=== PATIENT | female | born 2000 | race Caucasian/White ===

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

== ENCOUNTER → 2020-09-13 | Outpatient (CLI) | payer OTHER ==
[~2020-09-13] MED LIST changes: +GADOBUTROL 10 MMOL/10 ML (GADAVIST) VIAL IV ONE; -ONDA8TAB12; +ONDA8TAB15
--- NOTE | 2020-09-13 10:38 | Diagnostic Imaging Report ---
PROCEDURE: MR imaging of the brain with and without contrast. TECHNIQUE: Multiplanar, multisequence MR imaging of the brain was performed with and without contrast. INDICATION: Leg numbness. COMPARISON: No prior studies are available for comparison. FINDINGS: The ventricles and sulci are within normal limits. No sulcal effacement or midline shift is identified. No acute intra-axial or extra-axial hemorrhage is detected. The corpus callosum is unremarkable. The sella and parasellar structures are unremarkable. No abnormal enhancement following contrast administration is seen. There is no diffusion restriction. The normal expected flow-voids within the carotid siphons are seen. IMPRESSION: Unremarkable pre and post contrast MRI of the brain. Dictated by: Dictated on workstation # [id number]
== END ==
LOC: RAD 09:08
PROVIDERS: ATTEND Nurse Practitioner Family
DX: M79.609 Pain in unspecified limb (principal); R20.2 Paresthesia of skin
CPT/HCPCS: 70553

== ENCOUNTER → 2020-12-30 | Outpatient (CLI) | payer OTHER ==
[~2020-12-30] MED LIST changes: +ESCI-2; -ESCI10TA55; -GADOBUTROL 10 MMOL/10 ML (GADAVIST) VIAL IV ONE
--- NOTE | 2020-12-30 13:02 | Diagnostic Imaging Report ---
PROCEDURE: Pelvic comp/transvaginal sonogram. TECHNIQUE: Complete transabdominal and transvaginal pelvic ultrasound was performed. In addition, limited pelvic Doppler was performed. INDICATION: Vaginal bleeding and pelvic pain. FINDINGS: The uterus is anteverted measuring 6.6 x 2.6 x 3.2 cm. The endometrium is 6 mm in thickness. No myometrial mass is detected. The right ovary measures 4.3 x 2.7 x 2.8 cm and the left ovary measures 3.7 x 2.4 x 2.4 cm. Both ovaries contain multiple follicles. The right ovary does contain a 2 cm follicle. There is blood flow to both ovaries. No adnexal mass or free fluid is detected. IMPRESSION: Unremarkable transabdominal and transvaginal pelvic ultrasound apart from a 2 cm follicle in the right ovary. Dictated by: Dictated on workstation # [id number]
== END ==
LOC: RAD 09:49
PROVIDERS: ATTEND Nurse Practitioner Family
DX: N93.9 Abnormal uterine and vaginal bleeding, unspecified (principal); N83.01 Follicular cyst of right ovary
CPT/HCPCS: 76830; 76856

== ENCOUNTER → 2021-06-24 | Outpatient (CLI) | payer OTHER ==
--- NOTE | 2021-06-24 13:26 | Diagnostic Imaging Report ---
INDICATION: Back pain. TIME OF EXAM: 12:53 p.m. FINDINGS: Three views of the lumbar spine were obtained. There is very slight left convexity lumbar scoliotic curvature. There is mild straightening of the normal lumbar lordotic curvature. Vertebral body heights are well maintained. Disc spaces are preserved. No fracture or subluxation is identified. There are surgical clips in the gallbladder fossa. IMPRESSION: Mild left convexity lumbar scoliotic curvature. No acute bony abnormality is detected. Dictated by: Dictated on workstation # [id number]
--- NOTE | 2021-06-24 14:13 | Diagnostic Imaging Report ---
INDICATION: Back injury. TIME OF EXAM: 12:52 p.m. FINDINGS: There is right convexity scoliotic curvature at the level of the ijz-nu-zusfk thoracic spine. There is straightening of the normal thoracic kyphotic curvature. Vertebral body heights are maintained. No vertebral body anomaly is seen. The pedicles are intact. Paraspinous line is intact. IMPRESSION: Thoracic scoliosis. No acute bony abnormality is detected. Dictated by: Dictated on workstation # [id number]
== END ==
LOC: RAD 12:20
PROVIDERS: ATTEND Nurse Practitioner Family
DX: S23.8XXA Sprain of other specified parts of thorax, initial encounter (principal); S39.012A Strain of muscle, fascia and tendon of lower back, initial encounter; G90.8 Other disorders of autonomic nervous system; M41.9 Scoliosis, unspecified; X58.XXXA Exposure to other specified factors, initial encounter
CPT/HCPCS: 72070; 72100

== ENCOUNTER 2021-09-02 21:37 | Emergency (ER) | payer OTHER ==
[~2021-09-02] VITALS: Ht 170 cm; Wt 62.0 kg
[2021-09-02] MEDS ORDERED: METO-333 PO (21:48)
[2021-09-02] MEDS ORDERED: MEDR10TA9 (21:48)
[2021-09-02] MEDS ORDERED: CYCL10TA9 (21:48)
--- NOTE | 2021-09-02 21:55 | ED Cardiac General ---
History of Present Illness General Chief Complaint: Chest Pain Stated Complaint: CP/BP 156/120 Nursing Triage Note: INTERMITTANT LEFT UPPER CHEST "ACHY" PAIN X2 HRS Source: patient Exam Limitations: no limitations (LEAH SAHA APRN) History of Present Illness Date Seen by Provider: Sep 02, 2021 Time Seen by Provider: 21:53 Initial Comments To ER by private vehicle from home. She was at work laying down when she noticed that she felt a little shaky and lightheaded with tightness in her chest. She is on metoprolol for her POTS. Her blood pressure was 150/120 when she took it. She called her mother who is a nurse who referred her to the emergency room. She overall feels a little better but still a little shaky. Timing/Duration: 1-3 hours Severity: moderate Location: central Activities at Onset: none NTG SL CYBER SECURITY SYSTEMS ENGINEER: No ASA po CYBER SECURITY SYSTEMS ENGINEER: No Associated Systoms: Denies Symptoms (LEAH SAHA APRN) Allergies and Home Medications Allergies Coded Allergies: No Known Drug Allergies (Unverified , 07/18/12) Patient Home Medication List Home Medication List Reviewed: Yes (LEAH SAHA APRN) Cyclobenzaprine HCl (Cyclobenzaprine HCl) 10 Mg Tablet, (Reported) Entered as Reported by: OMAR GLEZ on 09/02/212147 Last Action: New Order Medroxyprogesterone Acetate (Medroxyprogesterone Acetate) 10 Mg Tablet, (Reported) Entered as Reported by: OMAR GLEZ on 09/02/212147 Last Action: New Order Metoprolol Tartrate (Metoprolol Tartrate) 25 Mg Tablet, Unknown Dose PO BID, (Reported) Entered as Reported by: OMAR GLEZ on 09/02/212147 Last Action: New Order Nitrofurantoin Monohyd/M-Cryst (Macrobid 100 mg Capsule) 100 Mg Capsule, 1 TAB PO BID Prescribed by: LEAH SAHA on 09/02/21 2252 Discontinued Medications Duloxetine HCl (Duloxetine HCl) 60 Mg Capsule., (Reported) Discontinued Reason: No Longer Taking Entered as Reported by: GAVINO MYLES on 06/21/191615 Last Action: Discontinued Rizatriptan Benzoate (Rizatriptan) 10 Mg Tablet, (Reported) Discontinued Reason: No Longer Taking Entered as Reported by: GAVINO MYLES on 9/7/19 1616 Last Action: Discontinued Review of Systems Review of Systems Constitutional: see HPI EENTM: No Symptoms Reported Respiratory: No Symptoms Reported Cardiovascular: See HPI, Lightheadedness, Palpitations Gastrointestinal: No Symptoms Reported Genitourinary: No Symptoms Reported Musculoskeletal: no symptoms reported Skin: no symptoms reported Psychiatric/Neurological: No Symptoms Reported Endocrine: No Symptoms Reported Hematologic/Lymphatic: No Symptoms Reported (LEAH SAHA APRN) Past Obtewtf-Cdxayf-Qbrjvw Hx Patient Social History Tobacco Use?: Yes Substance use?: No Alcohol Use?: No Pt feels they are or have been: No (LEAH SAHA APRN) Immunizations Up To Date PED Vaccines UTD: Yes First/Initial COVID19 Vaccinat: 12/05 Second COVID19 Vaccination Mulugeta: 01/02 COVID19 Vaccine Cloth Calender: magnetUBrayan (LEAH SAHA APRN) Seasonal Allergies Seasonal Allergies: No (LEAH SAHA APRN) Past Medical History Surgery/Hospitalization HX: POTS Surgeries: Yes Gallbladder Respiratory: No Cardiac: Yes (Postural Tachycardia Syndrome) Neurological: No Headaches /Migraines Last Menstrual Period: Aug 19, 2021 Reproductive Disorders: No Genitourinary: No Gastrointestinal: Yes Gastroesophageal Reflux Musculoskeletal: No Scoliosis Endocrine: No HEENT: No Cancer: No Psychosocial: No Anxiety, Depression Integumentary: No Blood Disorders: No (LEAH SAHA APRN) Physical Exam Vital Signs Vital Signs - First Documented 09/02/21 21:41 Temp 36.4 Pulse 103 Resp 16 B/P (MAP) 126/80 (95) Pulse Ox 97 O2 Delivery Room Air (TOOTIE,CELESTE K DO) Vital Signs Capillary Refill : Less Than 3 Seconds (LEAH SAHA APRN) Height, Weight, BMI Height: 5'7.00" Weight: 135lbs. 0.0oz. 61.671426zt; 21.00 BMI Method:Stated General Appearance: No Apparent Distress, WD/WN, Other (Alert and oriented GCS 15 very pleasant no distress talkative. EKG shows sinus rhythm rate of [address] segment changes no ectopy normal intervals.) Neck: Full Range of Motion, Normal Inspection Respiratory: Chest Non Tender, No Accessory Muscle Use, No Respiratory Distress Cardiovascular: Regular Rate, Rhythm, Normal Peripheral Pulses Gastrointestinal: Normal Bowel Sounds, Non Tender, Soft Extremity: Normal Capillary Refill, Normal Inspection Neurologic/Psychiatric: Alert, Oriented x3 Skin: Normal Color, Warm/Dry (LEAH SAHA APRN) Progress/Results/Core Measures Results/Orders Lab Results Laboratory Tests Test 09/02/21 21:53 09/02/21 21:58 Range/Units White Blood Count 10.1 4.3-11.0 10^3/uL Red Blood Count 4.80 3.80-5.11 10^6/uL Hemoglobin 14.7 11.5-16.0 g/dL Hematocrit 43 35-52 % Mean Corpuscular Volume 90 80-99 fL Mean Corpuscular Hemoglobin 31 25-34 pg Mean Corpuscular Hemoglobin Concent 34 32-36 g/dL Red Cell Distribution Width 11.6 10.0-14.5 % Platelet Count 222 130-400 10^3/uL Mean Platelet Volume 10.3 9.0-12.2 fL Immature Granulocyte % (Auto) 0 % Neutrophils (%) (Auto) 62 42-75 % Lymphocytes (%) (Auto) 29 12-44 % Monocytes (%) (Auto) 7 0-12 % Eosinophils (%) (Auto) 2 0-10 % Basophils (%) (Auto) 0 0-10 % Neutrophils # (Auto) 6.2 1.8-7.8 10^3/uL Lymphocytes # (Auto) 2.9 1.0-4.0 10^3/uL Monocytes # (Auto) 0.7 0.0-1.0 10^3/uL Eosinophils # (Auto) 0.2 0.0-0.3 10^3/uL Basophils # (Auto) 0.0 0.0-0.1 10^3/uL Immature Granulocyte # (Auto) 0.0 0.0-0.1 10^3/uL D-Dimer < 0.27 0.00-0.49 UG/ML Sodium Level 139 135-145 MMOL/L Potassium Level 3.6 3.6-5.0 MMOL/L Chloride Level 107 98-107 MMOL/L Carbon Dioxide Level 21 21-32 MMOL/L Anion Gap 11 5-14 MMOL/L Blood Urea Nitrogen 9 7-18 MG/DL Creatinine 0.75 0.60-1.30 MG/DL Estimat Glomerular Filtration Rate 98 BUN/Creatinine Ratio 12 Glucose Level 94 70-105 MG/DL Calcium Level 9.3 8.5-10.1 MG/DL Corrected Calcium 9.1 8.5-10.1 MG/DL Total Bilirubin 0.4 0.1-1.0 MG/DL Aspartate Amino Transf (AST/SGOT) 22 5-34 U/L Alanine Aminotransferase (ALT/SGPT) 12 0-55 U/L Alkaline Phosphatase 75 40-136 U/L C-Reactive Protein High Sensitivity 0.03 0.00-0.50 MG/DL Total Protein 7.0 6.4-8.2 GM/DL Albumin 4.2 3.2-4.5 GM/DL Serum Test, Qualitative NEGATIVE NEGATIVE Urine Color YELLOW Urine Clarity CLEAR Urine pH 5.5 5-9 Urine Specific Bronson 1.025 H 1.016-1.022 Urine Protein NEGATIVE NEGATIVE Urine Glucose (UA) NEGATIVE NEGATIVE Urine Ketones NEGATIVE NEGATIVE Urine Nitrite NEGATIVE NEGATIVE Urine Bilirubin NEGATIVE NEGATIVE Urine Urobilinogen 0.2 < = 1.0 MG/DL Urine Leukocyte Esterase 1+ H NEGATIVE Urine RBC (Auto) 1+ H NEGATIVE Urine RBC 0-2 /HPF Urine WBC 5-10 H /HPF Urine Squamous Epithelial Cells 5-10 /HPF Urine Crystals PRESENT H /LPF Urine Amorphous Sediment FEW WANDA URATES H /LPF Urine Bacteria FEW H /HPF Urine Casts NONE /LPF Urine Mucus NEGATIVE /LPF Urine Culture Indicated YES (CELESTE SOMMERS DO) Micro Results Microbiology 09/02/21 Urine Culture - Final, Complete Mixed Bacterial Adriana With Gardnerella vaginalis Strep agalactiae Group B (ELAYNE SOMMERSA K DO) Vital Signs/I&O 09/02/21 09/02/21 21:41 23:11 Temp 36.4 36.0 Pulse 103 74 Resp 16 16 B/P (MAP) 126/80 (95) 123/77 Pulse Ox 97 100 O2 Delivery Room Air Room Air (ELAYNE SOMMERSA Madhav DO) Blood Pressure Mean: 95 Departure Impression Primary Impression: Lightheadedness Disposition: 01 HOME, SELF-CARE Condition: Stable Departure-Patient Inst. Decision time for Depature: 22:49 (LEAH SAHA APRN) Referrals: [facility] (PCP/Family) Primary Care Physician Patient Instructions: NO INSTRUCTIONS GIVEN Add. Discharge Instructions: 1. return to er for any concerns All discharge instructions reviewed with patient and/or family. Voiced understanding. Scripts Nitrofurantoin Monohyd/M-Cryst (Macrobid 100 mg Capsule) 100 Mg Capsule 1 TAB PO BID, #10 CAP Prov: LEAH SAHA BUSINESS SERVICES TECH 09/02/21 Work/School Note: Work Release Form Date Seen in the Emergency Department: Sep 02, 2021 Return to Work: Sep 04, 2021 ATTENDING PHYSICIAN NOTE: I WAS PHYSICALLY PRESENT ER PHYSICIAN WHEN THIS PATIENT WAS IN ER, BUT I WAS NOT INVOLVED IN ANY DECISION MAKING OR ANY CARE OF THIS PATIENT. (CELESTE SOMMERS DO) LEAH SAHA APRN Sep 02, 2021 21:55 CELESTE SOMMERS DO Sep 05, 2021 19:43
[2021-09-02] MEDS ORDERED: LACTATED RINGERS 1,000 ML IV SCH (22:00)
[2021-09-02 22:06] LABS: BASOPHILS % (AUTO) 0 % (0-10); EOSINOPHILS # (AUTO) 0.2 10^3/uL (0.0-0.3); EOSINOPHILS % (AUTO) 2 % (0-10); HEMATOCRIT 43 % (35-52); HEMOGLOBIN 14.7 g/dL (11.5-16.0); LYMPHOCYTES # (AUTO) 2.9 10^3/uL (1.0-4.0); LYMPHOCYTES % (AUTO) 29 % (12-44); MEAN CORPUSCULAR HEMOGLOBIN 31 pg (25-34); MEAN CORPUSCULAR HGB CONC 34 g/dL (32-36); MEAN CORPUSCULAR VOLUME 90 fL (80-99); MEAN PLATELET VOLUME 10.3 fL (9.0-12.2); MONOCYTES # (AUTO) 0.7 10^3/uL (0.0-1.0); MONOCYTES % (AUTO) 7 % (0-12); NEUTROPHILS # (AUTO) 6.2 10^3/uL (1.8-7.8); NEUTROPHILS % (AUTO) 62 % (42-75); PLATELET COUNT 222 10^3/uL (130-400); WHITE BLOOD COUNT 10.1 10^3/uL (4.3-11.0)
[2021-09-02 22:08] LABS: BILIRUBIN,URINE NEGATIVE (NEGATIVE); CLARITY,URINE CLEAR; COLOR,URINE YELLOW; GLUCOSE, URINE (UA) NEGATIVE (NEGATIVE); KETONES,URINE NEGATIVE (NEGATIVE); LEUKOCYTE ESTERASE ,URINE 1+ (NEGATIVE); NITRITE,URINE NEGATIVE (NEGATIVE); PH,URINE 5.5 (5-9); PROTEIN,URINE NEGATIVE (NEGATIVE)
[2021-09-02 22:26] LABS: ALBUMIN 4.2 GM/DL (3.2-4.5); POTASSIUM 3.6 MMOL/L (3.6-5.0)
[2021-09-02 22:27] LABS: CALCIUM 9.3 MG/DL (8.5-10.1)
[2021-09-02 22:30] LABS: BILIRUBIN,TOTAL 0.4 MG/DL (0.1-1.0)
[2021-09-02 22:32] LABS: CREATININE SERUM 0.75 MG/DL (0.60-1.30)
[2021-09-02 22:49] LABS: RBC,URINE 0-2 /HPF
[2021-09-02 22:50] LABS: AMORPHOUS SEDIMENT,UR FEW AMOR URATES /LPF; BACTERIA,URINE FEW /HPF
[2021-09-02] MEDS ORDERED: NITR-65 PO (22:52)
[2021-09-02 23:11] VITALS: BP 123/77
== END 2021-09-02 23:14 | disposition home or self-care (01) ==
LOC: EDUNIT# 21:37 → ER 21:39
DX: R42 Dizziness and giddiness (principal); F41.9 Anxiety disorder, unspecified; F32.9 Major depressive disorder, single episode, unspecified; Z72.0 Tobacco use
CPT/HCPCS: 36415; 80053; 81000; 84703; 85025; 85379; 86141; 87077; 87088; 93005

== ENCOUNTER 2022-03-03 21:00 | Emergency (ER) | payer OTHER ==
[~2022-03-03] VITALS: Ht 172.7 cm; Wt 68.0 kg
[~2022-03-03 21:00] MED LIST changes: +CYCL10TA25; +MEDR10TA9; +METO-333 PO; +NITR-65 PO; +ONDA-106; -ONDA8TAB15
[2022-03-03] MEDS ORDERED: LACTATED RINGERS 1,000 ML IV ONE (21:15)
--- NOTE | 2022-03-03 21:19 | ED General ---
General Stated Complaint: CARDIAC HX, LOW BP 94/62, HIGH HR 147 Source of Information: Patient History of Present Illness Date Seen by Provider: March 03, 2022 Time Seen by Provider: 21:07 Initial Comments PT ARRIVES VIA POV FROM HOME PCP: KURTIS, DR. [employer] CONSULTANT: DR. MISHRA Allergies and Home Medications Allergies Coded Allergies: No Known Drug Allergies (Unverified , 07/18/12) Patient Home Medication List Cyclobenzaprine HCl (Cyclobenzaprine HCl) 10 Mg Tablet, (Reported) Entered as Reported by: OMAR GLEZ on 09/02/212147 Medroxyprogesterone Acetate (Medroxyprogesterone Acetate) 10 Mg Tablet, (Reported) Entered as Reported by: OMAR GLEZ on 09/02/212147 Metoprolol Tartrate (Metoprolol Tartrate) 25 Mg Tablet, Unknown Dose PO BID, (Reported) Entered as Reported by: OMAR GLEZ on 09/02/212147 Nitrofurantoin Monohyd/M-Cryst (Macrobid 100 mg Capsule) 100 Mg Capsule, 1 TAB PO BID Prescribed by: LEAH SAHA on 09/02/212251 Past Ffljpga-Mbxkvy-Lrlkyc Hx Immunizations Up To Date PED Vaccines UTD: Yes First/Initial COVID19 Vaccinat: 12/05 Second COVID19 Vaccination Mulugeta: 01/02 Seasonal Allergies Seasonal Allergies: No Past Medical History Surgery/Hospitalization HX: POTS Surgeries: Yes Gallbladder Respiratory: No Cardiac: Yes (Postural Tachycardia Syndrome) Neurological: No Headaches /Migraines Reproductive Disorders: No Genitourinary: No Gastrointestinal: Yes Gastroesophageal Reflux Musculoskeletal: No Scoliosis Endocrine: No HEENT: No Cancer: No Psychosocial: No Anxiety, Depression Integumentary: No Blood Disorders: No Physical Exam Vital Signs Vital Signs - First Documented 03/03/22 21:07 Temp 36.2 Pulse 100 Resp 18 B/P (MAP) 130/85 (100) Pulse Ox 99 Capillary Refill : Height, Weight, BMI Height: 5'7.00" Weight: 135lbs. 0.0oz. [id number]; 21.00 BMI Method:Stated Progress/Results/Core Measures Suspected Sepsis SIRS Temperature: Pulse: Respiratory Rate: Laboratory Tests 03/03/22 21:26: White Blood Count 10.7 Blood Pressure / Mean: Laboratory Tests 03/03/22 21:26: Creatinine 0.84, Platelet Count 225, Total Bilirubin 1.0 Results/Orders Lab Results Laboratory Tests Test 03/03/22 21:26 03/03/22 21:30 Range/Units White Blood Count 10.7 4.3-11.0 10^3/uL Red Blood Count 5.13 H 3.80-5.11 10^6/uL Hemoglobin 15.4 11.5-16.0 g/dL Hematocrit 45 35-52 % Mean Corpuscular Volume 88 80-99 fL Mean Corpuscular Hemoglobin 30 25-34 pg Mean Corpuscular Hemoglobin Concent 34 32-36 g/dL Red Cell Distribution Width 11.6 10.0-14.5 % Platelet Count 225 130-400 10^3/uL Mean Platelet Volume 10.3 9.0-12.2 fL Immature Granulocyte % (Auto) 0 % Neutrophils (%) (Auto) 77 H 42-75 % Lymphocytes (%) (Auto) 17 12-44 % Monocytes (%) (Auto) 5 0-12 % Eosinophils (%) (Auto) 1 0-10 % Basophils (%) (Auto) 0 0-10 % Neutrophils # (Auto) 8.3 H 1.8-7.8 10^3/uL Lymphocytes # (Auto) 1.8 1.0-4.0 10^3/uL Monocytes # (Auto) 0.5 0.0-1.0 10^3/uL Eosinophils # (Auto) 0.1 0.0-0.3 10^3/uL Basophils # (Auto) 0.0 0.0-0.1 10^3/uL Immature Granulocyte # (Auto) 0.0 0.0-0.1 10^3/uL Sodium Level 140 135-145 MMOL/L Potassium Level 3.8 3.6-5.0 MMOL/L Chloride Level 108 H 98-107 MMOL/L Carbon Dioxide Level 19 L 21-32 MMOL/L Anion Gap 13 5-14 MMOL/L Blood Urea Nitrogen 14 7-18 MG/DL Creatinine 0.84 0.60-1.30 MG/DL Estimat Glomerular Filtration Rate 101 BUN/Creatinine Ratio 17 Glucose Level 100 70-105 MG/DL Calcium Level 9.9 8.5-10.1 MG/DL Corrected Calcium 8.5-10.1 MG/DL Magnesium Level 2.3 1.6-2.4 MG/DL Total Bilirubin 1.0 0.1-1.0 MG/DL Aspartate Amino Transf (AST/SGOT) 26 5-34 U/L Alanine Aminotransferase (ALT/SGPT) 18 0-55 U/L Alkaline Phosphatase 58 40-136 U/L B-Type Natriuretic Peptide < 10.0 <100.0 PG/ML Total Protein 8.3 H 6.4-8.2 GM/DL Albumin 5.0 H 3.2-4.5 GM/DL Urine Color YELLOW Urine Clarity CLEAR Urine pH 5.5 5-9 Urine Specific Redby >=1.030 1.016-1.022 Urine Protein NEGATIVE NEGATIVE Urine Glucose (UA) NEGATIVE NEGATIVE Urine Ketones 1+ H NEGATIVE Urine Nitrite NEGATIVE NEGATIVE Urine Bilirubin NEGATIVE NEGATIVE Urine Urobilinogen 0.2 < = 1.0 MG/DL Urine Leukocyte Esterase NEGATIVE NEGATIVE Urine RBC (Auto) NEGATIVE NEGATIVE Urine RBC 0-2 /HPF Urine WBC 2-5 /HPF Urine Squamous Epithelial Cells 5-10 /HPF Urine Crystals NONE /LPF Urine Bacteria FEW H /HPF Urine Casts NONE /LPF Urine Mucus SMALL H /LPF Urine Yeast FEW H /HPF Urine Culture Indicated YES Urine Opiates Screen NEGATIVE NEGATIVE Urine Oxycodone Screen NEGATIVE NEGATIVE Urine Methadone Screen NEGATIVE NEGATIVE Urine Propoxyphene Screen NEGATIVE NEGATIVE Urine Barbiturates Screen NEGATIVE NEGATIVE Ur Tricyclic Antidepressants Screen NEGATIVE NEGATIVE Urine Phencyclidine Screen NEGATIVE NEGATIVE Urine Amphetamines Screen NEGATIVE NEGATIVE Urine Methamphetamines Screen NEGATIVE NEGATIVE Urine Benzodiazepines Screen NEGATIVE NEGATIVE Urine Cocaine Screen NEGATIVE NEGATIVE Urine Cannabinoids Screen NEGATIVE NEGATIVE My Orders Orders - CELESTE SOMMERS DO Ed Iv/Invasive Line Start (03/03/22 21:08) Urine Bedside (03/03/22 21:08) Ekg Tracing (03/03/22 21:08) Monitor-Rhythm Ecg Trace Only (03/03/22 21:08) Bnp Yobany (03/03/22 21:08) Cbc With Automated Diff (03/03/22 21:08) Comprehensive Metabolic Panel (03/03/22 21:08) Drug Screen Stat (Urine) (03/03/22 21:08) Magnesium (03/03/22 21:08) Thyroid Analyzer (03/03/22 21:08) Ua Culture If Indicated (03/03/22 21:08) Ed Iv/Invasive Line Start (03/03/22 21:08) Lactated Ringers (Lr 1000 Ml Iv Solution (03/03/22 21:15) Ketorolac Injection (Toradol Injection) (03/03/22 22:15) Urine Culture (03/03/22 21:30) Medications Given in ED Current Medications Medications Dose Ordered Sig/Floyd Route Start Time Stop Time Status Last Admin Dose Admin Lactated Ringer's 1,000 ml @ 0 mls/hr Q0M ONCE IV 03/03/22 21:15 03/03/22 21:16 DC 03/03/22 21:32 0 MLS/HR Vital Signs/I&O 03/03/22 21:07 Temp 36.2 Pulse 100 Resp 18 B/P (MAP) 130/85 (100) Pulse Ox 99 Capillary Refill : Progress Note : Progress Note PT IS TALKING AND TEXTING ON PHONE FROM ARRIVAL AND THROUGHOUT HISTORY AND EXAM, DESPITE BEING ASKED MULTIPLE TIMES TO PUT PHONE AWAY. AFTER ARRIVAL, A MALE IS IN ROOM WITH HER AND BOTH ARE CONTINUOUSLY TEXTING THROUGHOUT ER STAY. PT GIVEN TORADOL FOR C/O HEADACHE NO OTHER COMPLAINTS FOR ENTIRE ER STAY VITALS ALL NORMAL ECG Initial ECG Impression Date: March 03, 2022 Initial ECG Impression Time: 21:15 Initial ECG Rate: 106 Initial ECG Rhythm: S.Tach Departure Impression Primary Impression: Anxiety Additional Impressions: Headache UTI (urinary tract infection) Disposition: 01 HOME, SELF-CARE Condition: Improved Departure-Patient Inst. Referrals: [facility] (PCP/Family) Primary Care Physician DOROTHY MISHRA MD Patient Instructions: Anxiety, Adult (DC), Headache, Adult ED, Urinary Tract Infection, Adult ED Add. Discharge Instructions: HOME, REST TAKE YOUR MEDICATIONS PRESCRIBED TYLENOL AND MOTRIN NEEDED FOR PAIN FOLLOW UP WITH YOUR DR IF SYMPTOMS PERSIST Scripts Nitrofurantoin Monohyd/M-Cryst (Macrobid 100 mg Capsule) 100 Mg Capsule 1 TAB PO BID, #14 CAP Prov: CELESTE SOMMERS DO 03/03/22 CELESTE SOMMERS DO March 03, 2022 21:19
[2022-03-03 21:35] LABS: BASOPHILS % (AUTO) 0 % (0-10); EOSINOPHILS # (AUTO) 0.1 10^3/uL (0.0-0.3); EOSINOPHILS % (AUTO) 1 % (0-10); HEMATOCRIT 45 % (35-52); HEMOGLOBIN 15.4 g/dL (11.5-16.0); LYMPHOCYTES # (AUTO) 1.8 10^3/uL (1.0-4.0); LYMPHOCYTES % (AUTO) 17 % (12-44); MEAN CORPUSCULAR HEMOGLOBIN 30 pg (25-34); MEAN CORPUSCULAR HGB CONC 34 g/dL (32-36); MEAN CORPUSCULAR VOLUME 88 fL (80-99); MEAN PLATELET VOLUME 10.3 fL (9.0-12.2); MONOCYTES # (AUTO) 0.5 10^3/uL (0.0-1.0); MONOCYTES % (AUTO) 5 % (0-12); NEUTROPHILS # (AUTO) 8.3 10^3/uL (1.8-7.8); NEUTROPHILS % (AUTO) 77 % (42-75); PLATELET COUNT 225 10^3/uL (130-400); WHITE BLOOD COUNT 10.7 10^3/uL (4.3-11.0)
[2022-03-03 21:46] LABS: BILIRUBIN,URINE NEGATIVE (NEGATIVE); CLARITY,URINE CLEAR; COLOR,URINE YELLOW; GLUCOSE, URINE (UA) NEGATIVE (NEGATIVE); KETONES,URINE 1+ (NEGATIVE); LEUKOCYTE ESTERASE ,URINE NEGATIVE (NEGATIVE); NITRITE,URINE NEGATIVE (NEGATIVE); PH,URINE 5.5 (5-9); PROTEIN,URINE NEGATIVE (NEGATIVE)
[2022-03-03 21:47] LABS: CHLORIDE 108 MMOL/L (98-107); POTASSIUM 3.8 MMOL/L (3.6-5.0); SODIUM 140 MMOL/L (135-145)
[2022-03-03 21:48] LABS: CALCIUM 9.9 MG/DL (8.5-10.1)
[2022-03-03 21:50] LABS: GLUCOSE 100 MG/DL (70-105); TOTAL PROTEIN 8.3 GM/DL (6.4-8.2)
[2022-03-03 21:51] LABS: CARBON DIOXIDE 19 MMOL/L (21-32)
[2022-03-03 21:52] LABS: AMPHETAMINE SCREEN, URINE NEGATIVE (NEGATIVE); BARBITURATE SCREEN URINE NEGATIVE (NEGATIVE); BENZODIAZEPINES SCREEN URINE NEGATIVE (NEGATIVE); CANNABINOID SCREEN, URINE NEGATIVE (NEGATIVE); COCAINE SCREEN URINE NEGATIVE (NEGATIVE); METHADONE STAT NEGATIVE (NEGATIVE); OPIATE SCREEN URINE NEGATIVE (NEGATIVE); OXYCODONE STAT NEGATIVE (NEGATIVE); PROPOXYPHENE STAT NEGATIVE (NEGATIVE); TRICYCLIC ANTIDEPRESSANTS SCRE NEGATIVE (NEGATIVE)
[2022-03-03 21:53] LABS: ALKALINE PHOSPHATASE 58 U/L (40-136); CREATININE SERUM 0.84 MG/DL (0.60-1.30); GFR ESTIMATED 101
[2022-03-03 21:54] LABS: BUN/CREATININE RATIO 17
[2022-03-03 21:56] LABS: ALANINE AMINOTRANSFERASE 18 U/L (0-55); MAGNESIUM 2.3 MG/DL (1.6-2.4)
[2022-03-03 22:06] LABS: BACTERIA,URINE FEW /HPF; RBC,URINE 0-2 /HPF; YEAST,URINE FEW /HPF
[2022-03-03] MEDS ORDERED: NITR-65 PO (22:10)
[2022-03-03] MEDS ORDERED: KETOROLAC 30 MG/ML VIAL IVP ONE (22:15)
[2022-03-03 22:16] LABS: TSH (THYROID ANALYZER) 0.68 UIU/ML (0.35-4.94)
[2022-03-03 22:34] VITALS: BP 120/75
== END 2022-03-03 22:36 | disposition home or self-care (01) ==
LOC: EDUNIT# 21:00 → ER 21:02
DX: F41.9 Anxiety disorder, unspecified (principal); N39.0 Urinary tract infection, site not specified
CPT/HCPCS: 36415; 80053; 80306; 81000; 83735; 83880; 84443; 84703; 85025; 87088; 93005; 93041

== ENCOUNTER → 2022-03-10 | Outpatient (CLI) | payer OTHER | LOC: CARD 09:30 | PROVIDERS: ATTEND Internal Medicine Cardiovascular Disease | DX: I10 Essential (primary) hypertension (principal); I25.10 Atherosclerotic heart disease of native coronary artery without angina pectoris | CPT/HCPCS: 93306 ==

== ENCOUNTER → 2022-03-22 | Outpatient (CLI) | payer OTHER ==
[2022-03-22 10:19] VITALS: BP 123/77
== END ==
LOC: CARD 10:30
PROVIDERS: ATTEND Internal Medicine Cardiovascular Disease
DX: I10 Essential (primary) hypertension (principal); I25.10 Atherosclerotic heart disease of native coronary artery without angina pectoris

== ENCOUNTER 2022-05-27 16:13 | Emergency (ER) | payer OTHER ==
[~2022-05-27] VITALS: Ht 172.7 cm; Wt 65.3 kg
[2022-05-27] MEDS ORDERED: NS IV 1000 ML 1,000 ML IV STA (16:44)
[2022-05-27] MEDS ORDERED: METOCLOPRAMIDE INJ 10 MG/2 ML (REGLAN) IVP ONE (16:45)
[2022-05-27] MEDS ORDERED: diphenhydrAMINE 50 MG/ML INJ (BENADRYL) IM ONE (16:45)
[2022-05-27] MEDS ORDERED: KETOROLAC 15 MG/ML VIAL IVP ONE (16:45)
--- NOTE | 2022-05-27 16:51 | ED Psychosocial ---
General Chief Complaint: Psych/Social Disorder Stated Complaint: SI Source: patient Exam Limitations: no limitations History of Present Illness Date Seen by Provider: May 27, 2022 Time Seen by Provider: 16:46 Initial Comments Patient presents from [facility] for evaluation of depression and a migraine. She went to [facility] to be evaluated for dehydration, and while she was there they asked her about depression. She states she was honest about her chronic depression and that she did not generally care what happened to her [facility] and they sent her here. She states she is not suicidal and has no desire for self harm, and this is her baseline depression. She does not wish evaluation for her mental health, and states she just has a chronic migraine she was hoping we could treat. Timing/Duration: just prior to arrival Severity: mild Allergies and Home Medications Allergies Coded Allergies: No Known Drug Allergies (Unverified , 07/18/12) Patient Home Medication List Home Medication List Reviewed: Yes Cyclobenzaprine HCl (Cyclobenzaprine HCl) 10 Mg Tablet, (Reported) Entered as Reported by: OMAR GLEZ on 09/02/212147 Medroxyprogesterone Acetate (Medroxyprogesterone Acetate) 10 Mg Tablet, (Reported) Entered as Reported by: OMAR GLEZ on 09/02/212147 Metoprolol Tartrate (Metoprolol Tartrate) 25 Mg Tablet, Unknown Dose PO BID, (Reported) Entered as Reported by: OMAR GLEZ on 09/02/212147 Nitrofurantoin Monohyd/M-Cryst (Macrobid 100 mg Capsule) 100 Mg Capsule, 1 TAB PO BID Prescribed by: LEAH SAHA on 09/02/212251 Nitrofurantoin Monohyd/M-Cryst (Macrobid 100 mg Capsule) 100 Mg Capsule, 1 TAB PO BID Prescribed by: CELESTE SOMMERS on 03/03/222209 Review of Systems Constitutional: no symptoms reported EENTM: see HPI Respiratory: no symptoms reported Cardiovascular: no symptoms reported Gastrointestinal: no symptoms reported Genitourinary: no symptoms reported Musculoskeletal: no symptoms reported Skin: no symptoms reported Psychiatric/Neurological: Anxiety, Depressed, Emotional Problems, Headache Past Oxmllcb-Mqwnty-Dmkkyr Hx Patient Social History Tobacco Use?: No Immunizations Up To Date PED Vaccines UTD: Yes First/Initial COVID19 Vaccinat: 12/05 Second COVID19 Vaccination Mulugeta: 01/02 Seasonal Allergies Seasonal Allergies: No Past Medical History Surgery/Hospitalization HX: POTS Surgeries: Yes Gallbladder Respiratory: No Cardiac: Yes (Postural Tachycardia Syndrome) Neurological: No Headaches /Migraines Reproductive Disorders: No Genitourinary: No Gastrointestinal: Yes Gastroesophageal Reflux Musculoskeletal: No Scoliosis Endocrine: No HEENT: No Cancer: No Psychosocial: No Anxiety, Depression Integumentary: No Blood Disorders: No Physical Exam Capillary Refill : Height, Weight, BMI Height: 5'7.00" Weight: 135lbs. 0.0oz. 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, no motor/sensory deficits, alert, oriented x 3, other (baseline depression) Appearance/Memory: appropriate appearance, appropriate insight, neat Behavior/Eye Contact: cooperative, good eye contact, normal speech Thoughts/Hallucinations: normal thought pattern Skin: normal color, warm/dry Lymphatic: no adenopathy Suicide Risk Suicide Risk Suicide Risk Level / RN Screen: Low Low Suicide Risk Level []Suicidal Ideation WITHOUT method, intent, plan or behavior more than a month ago []]Modifiable risk factors and strong protective factors []No reported history of suicidal ideation or behavior []Patient reports/exhibits symptoms consistent with psychosis []Patient reports a plan that would be unrealistic/impossible to complete and intent []Suicide attempt prior to arrival (Indicates at LEAST Low Suicide Risk, consider other risk factors) Moderate Suicide Risk Level: []Suicidal ideation with method, WITHOUT plan, intent or behavior in the past month []Multiple risk factors and few protective factors []Patient reports intent to follow through on plan to end life if allowed to leave hospital, and has attempted to elope from the hospital High Suicide Risk Level: [] Suicidal ideation with intent or intent with a plan in the past month [] Patient has harmed self or attempted suicide while in the hospital [] Patient has hx of or current Command Auditory hallucinations to harm self or others that they follow without hesitation [] Patient refuses to disclose plan, and indicates intent to complete [] Patient reports plan that is possible to accomplish and/or has means to complete Risk factors supporting recommendation: [] Non-compliance with treatment (acute or chronic) [] Patient has access to or owns firearms and/or stockpiled medications [] Hx Impulsive behavior [] Pending incarceration or homelessness [] Sexual abuse [] Family history and/or exposure to suicide [] Adverse childhood experiences [] Exposure to violence or negative socio-political cultural, and economic forces [] Current or hx of substance use/abuse [] Chronic physical pain or other acute medical problem (AIDS, COPD, Cancer, etc) [] Perceived burden on family or others [] Patient has attempted to elope [] Unable to answer and/or unable to identify [] Refuses to agree to a safety plan Protective Factors supporting recommendation: [] Identifies reasons for living [] Future plans/goals [] Engaged in work or School [] Good family support network [] Good social support network [] Responsibility to family [] Belief that suicide is immoral, against their protestant beliefs [] High spirituality and involvement in rastafarian community [] Fear of or dying due to pain and suffering [] Established outpt psychiatric services [] Unable to answer and/or unable to identify Risk Assessment Tool Score: Low Progress/Results/Core Measures Results/Orders My Orders Orders - HOWARD MORRIS Ekg Tracing (05/27/22 16:28) Normal Saline Bolus 1,000ml (05/27/22 16:44) Metoclopramide Injection (Reglan Injecti (05/27/22 16:45) Diphenhydramine Injection (Benadryl Inje (05/27/22 16:45) Ketorolac Injection (Toradol Injection) (05/27/22 16:45) Departure Communication (Admissions) Patient is at baseline and states she is not suicidal in any way. She does not wish to go inpatient and has no desire for for further evaluation. She does report having a migraine and we treated that her in the ER. No evidence or suspicion of intracranial hemorrhage, meningitis, overdose or other emergent condition. Impression Primary Impression: Depression Additional Impression: Migraine Disposition: 01 HOME, SELF-CARE Condition: Stable Departure-Patient Inst. Decision time for Depature: 16:56 Referrals: [facility] (PCP/Family) Primary Care Physician Patient Instructions: Depression, Migraines in Adults Add. Discharge Instructions: Please return to the ER with any severe changes or worsening of symptoms. Follow up with your mental health provider for further evaluation. All discharge instructions reviewed with patient and/or family. Voiced understanding. HOWARD MORRIS May 27, 2022 16:51
[2022-05-27] MEDS ORDERED: diphenhydrAMINE 50 MG/ML INJ (BENADRYL) IVP ONE (17:00)
[2022-05-27] MEDS ORDERED: KETOROLAC 30 MG/ML VIAL ONE (17:07)
[2022-05-27 18:12] VITALS: BP 124/85
== END 2022-05-27 18:12 | disposition home or self-care (01) ==
LOC: EDUNIT# 16:13 → ER 16:15
DX: F32.A Depression, unspecified (principal); G43.909 Migraine, unspecified, not intractable, without status migrainosus
CPT/HCPCS: 99283

== ENCOUNTER 2022-06-09 21:27 | Emergency (ER) | payer OTHER ==
[~2022-06-09] VITALS: Ht 172.7 cm; Wt 63.5 kg
--- NOTE | 2022-06-09 22:04 | ED Chest Pain ---
General Chief Complaint: Cardiac/General Problems Stated Complaint: CHEST TIGHNESS Nursing Triage Note: PT AMB TO ED BY POV WITH C/O POUNDING AND FLUTTERING HEART. PT REPORTS SHE HAS FELT LIKE HER HEART WAS FLUTTERING ON AND OFF OVER THE LAST COUPLE OF WEEKS, WORSE OVER THE LAST 2-3 DAYS. STATES "I FEEL LIKE I CAN FEEL MY HEART BEAT THROUGH MY ENTIRE BODY." PT HAS APPOINTMENT WITH [facility] AT ON May. Source: patient Exam Limitations: no limitations History of Present Illness Date Seen by Provider: Jun 09, 2022 Time Seen by Provider: 21:45 Initial Comments Patient to ER by private conveyance with chief complaint that she is having a syncopal episode today. She has been dealing with this for as long as she states she can remember. She was originally diagnosed with POTS by Dr. Greenwood and had multiple work-ups. She says is not always positional however the last couple days it has been positional until she had a syncopal episode today. She says whenever she stands up she feels something racing heart rate and feels faint like she is going to pass out. She says this happened a couple weeks ago and they gave her a couple liters of fluids and she did much better for several days. She is on 100 mg of metoprolol succinate daily and has recently started seeing Dr. Travis at [facility], cardiology who is initiating a work-up to challenge the diagnosis. She is having some tightness across her chest but no chest pain. No previous history of coronary disease or primary family history of heart disease. She does not have any shortness of breath or acute distress while lying in bed. She is mostly annoyed that this has continued to be an issue in her life. She is not having any nausea fever chills diarrhea, discharge, dysuria or constipation. She does occasionally have some loose stool since having her gallbladder out. She has also had her wisdom teeth out. No other significant medical history. The patient states in the past her troponin levels have been marginally elevated but when they repeat them they are the same or below what they were the first time. Allergies and Home Medications Allergies Coded Allergies: No Known Drug Allergies (Unverified , 07/18/12) Patient Home Medication List Home Medication List Reviewed: Yes Cyclobenzaprine HCl (Cyclobenzaprine HCl) 10 Mg Tablet, (Reported) Entered as Reported by: OMAR GLEZ on 09/02/212147 Medroxyprogesterone Acetate (Medroxyprogesterone Acetate) 10 Mg Tablet, (Repo rted) Entered as Reported by: OMAR GLEZ on 09/02/212147 Metoprolol Tartrate (Metoprolol Tartrate) 25 Mg Tablet, Unknown Dose PO BID, (Reported) Entered as Reported by: OMAR GLEZ on 09/02/212147 Nitrofurantoin Monohyd/M-Cryst (Macrobid 100 mg Capsule) 100 Mg Capsule, 1 TAB PO BID Prescribed by: LEAH SAHA on 09/02/212251 Nitrofurantoin Monohyd/M-Cryst (Macrobid 100 mg Capsule) 100 Mg Capsule, 1 TAB PO BID Prescribed by: CELESTE SOMMERS on 03/03/222209 Review of Systems Review of Systems Constitutional: No chills, No diaphoresis EENTM: No Blurred Vision, No Double Vision Respiratory: Denies Cough, Denies Orthopnea Cardiovascular: See HPI; Denies Chest Pain; Lightheadedness, Palpitations, Syncope Gastrointestinal: Denies Abdominal Pain, Denies Constipated, Denies Diarrhea, Denies Nausea Genitourinary: Denies Burning, Denies Discharge Musculoskeletal: No back pain, No joint pain Skin: No pruritus, No rash Psychiatric/Neurological: Denies Headache, Denies Numbness All Other Systems Reviewed Negative Unless Noted: Yes Past Fmgqbkc-Kjfmiy-Naeyyg Hx Patient Social History Tobacco Use?: No Use of E-Cig and/or Vaping dev: No Substance use?: No Immunizations Up To Date PED Vaccines UTD: Yes First/Initial COVID19 Vaccinat: 12/05 Second COVID19 Vaccination Mulugeta: 01/02 Third COVID19 Vaccination Date: 12/05 Seasonal Allergies Seasonal Allergies: No Past Medical History Surgery/Hospitalization HX: POTS Surgeries: Yes Gallbladder Respiratory: No Cardiac: Yes (Postural Tachycardia Syndrome) Neurological: No Headaches /Migraines Reproductive Disorders: No Genitourinary: No Gastrointestinal: Yes Gastroesophageal Reflux Musculoskeletal: No Scoliosis Endocrine: No HEENT: No Cancer: No Psychosocial: No Anxiety, Depression Integumentary: No Blood Disorders: No Physical Exam Vital Signs Vital Signs - First Documented 06/09/22 21:35 Pulse 93 Resp 21 B/P (MAP) 122/87 (99) Pulse Ox 97 O2 Delivery Room Air Capillary Refill : Height, Weight, BMI Height: 5'7.00" Weight: 135lbs. 0.0oz. 61.029720ko; 21.00 BMI Method:Stated General Appearance: No Apparent Distress, WD/WN HEENT: PERRL/EOMI, TMs Normal, Normal ENT Inspection; No Pharynx Normal (Dry oral mucosa without erythema, injection, exudate or swollen tonsils), No Moist Mucous Membranes Neck: Full Range of Motion, Normal Inspection Respiratory: Lungs Clear, Normal Breath Sounds, No Accessory Muscle Use, No Respiratory Distress Cardiovascular: Regular Rate, Rhythm, No Edema Extremity: Normal Capillary Refill, Normal Inspection, No Pedal Edema Neurologic/Psychiatric: Alert, Oriented x3 Skin: Normal Color, Warm/Dry Progress/Results/Core Measures Results/Orders Lab Results Laboratory Tests Test 06/09/22 21:59 Range/Units White Blood Count 9.1 4.3-11.0 10^3/uL Red Blood Count 5.04 3.80-5.11 10^6/uL Hemoglobin 15.2 11.5-16.0 g/dL Hematocrit 44 35-52 % Mean Corpuscular Volume 87 80-99 fL Mean Corpuscular Hemoglobin 30 25-34 pg Mean Corpuscular Hemoglobin Concent 35 32-36 g/dL Red Cell Distribution Width 11.8 10.0-14.5 % Platelet Count 203 130-400 10^3/uL Mean Platelet Volume 11.1 9.0-12.2 fL Immature Granulocyte % (Auto) 0 % Neutrophils (%) (Auto) 69 42-75 % Lymphocytes (%) (Auto) 22 12-44 % Monocytes (%) (Auto) 7 0-12 % Eosinophils (%) (Auto) 1 0-10 % Basophils (%) (Auto) 0 0-10 % Neutrophils # (Auto) 6.3 1.8-7.8 10^3/uL Lymphocytes # (Auto) 2.0 1.0-4.0 10^3/uL Monocytes # (Auto) 0.6 0.0-1.0 10^3/uL Eosinophils # (Auto) 0.1 0.0-0.3 10^3/uL Basophils # (Auto) 0.0 0.0-0.1 10^3/uL Immature Granulocyte # (Auto) 0.0 0.0-0.1 10^3/uL Sodium Level 140 135-145 MMOL/L Potassium Level 3.1 L 3.6-5.0 MMOL/L Chloride Level 107 98-107 MMOL/L Carbon Dioxide Level 21 21-32 MMOL/L Anion Gap 12 5-14 MMOL/L Blood Urea Nitrogen 5 L 7-18 MG/DL Creatinine 0.83 0.60-1.30 MG/DL Estimat Glomerular Filtration Rate 103 BUN/Creatinine Ratio 6 Glucose Level 97 70-105 MG/DL Calcium Level 9.6 8.5-10.1 MG/DL Corrected Calcium 9.2 8.5-10.1 MG/DL Total Bilirubin 0.8 0.1-1.0 MG/DL Aspartate Amino Transf (AST/SGOT) 20 5-34 U/L Alanine Aminotransferase (ALT/SGPT) 16 0-55 U/L Alkaline Phosphatase 48 40-136 U/L Troponin I < 0.028 <0.028 NG/ML C-Reactive Protein High Sensitivity 0.01 0.00-0.50 MG/DL Total Protein 7.1 6.4-8.2 GM/DL Albumin 4.5 3.2-4.5 GM/DL My Orders Orders - KARLA VALERA Ekg Tracing (06/09/22 21:46) Orthostatic Vital Signs (Adult (06/09/22 22:04) Cbc With Automated Diff (06/09/22 22:04) Comprehensive Metabolic Panel (06/09/22 22:04) Hs C Reactive Protein (06/09/22 22:04) Troponin I Yobany (06/09/22 22:04) Ed Iv/Invasive Line Start (06/09/22 23:15) Lactated Ringers (Lr 1000 Ml Iv Solution (06/09/22 23:15) Medications Given in ED Current Medications Medications Dose Ordered Sig/Floyd Route Start Time Stop Time Status Last Admin Dose Admin Lactated Ringer's 1,000 ml @ 0 mls/hr Q0M ONCE IV 06/09/22 23:15 06/09/22 23:16 DC 06/09/22 23:19 0 MLS/HR Vital Signs/I&O 06/09/22 06/09/22 21:35 22:24 Pulse 93 96 107 92 Resp 21 B/P (MAP) 122/87 (99) 123/85 (98) 139/97 (111) 127/98 (108) Pulse Ox 97 O2 Delivery Room Air Blood Pressure Mean: 99 Progress Progress Note #1: Time: 22:26 Progress Note Patient is having no adventitious tachydysrhythmias at this time. We will keep her on the monitor and do a set of orthostatic vital signs, give her a liter of lactated Ringer's and check some basic labs. She is not having any urinary symptoms. She is on Depo shot and has declined a test. Last menstrual cycle was in December. Progress Note #2: Time: 23:48 Progress Note The patient is feeling much better after the IV fluids. We did offer her a second bag which she declined. As long she can get up and walk around the nurse without becoming lightheaded then we will let her go home to follow-up outpatient with her global supply chain vice president. We will reduce her metoprolol to 50 mg daily for now. Initial ECG Impression Date: Jun 09, 2022 Initial ECG Impression Time: 21:51 Initial ECG Rate: 89 Initial ECG Rhythm: Normal Sinus Initial ECG Intervals: Normal Initial ECG Impression: Normal Comment Normal sinus rhythm without clinically relevant ST elevation depression Departure Impression Primary Impression: Mild dehydration Additional Impressions: Episode of syncope Qualified Codes: R55 - Syncope and collapse History of cardiac dysrhythmia Disposition: 01 HOME, SELF-CARE Condition: Improved Departure-Patient Inst. Decision time for Depature: 23:50 Referrals: [facility] (PCP/Family) Primary Care Physician Patient Instructions: Syncope (Fainting) Add. Discharge Instructions: Drink extra fluids and follow-up with your global supply chain vice president. I suggest you reduce your metoprolol to 50 mg tomorrow morning. If you have fast heart rates then you can take the second 50 mg tablet. All discharge instructions reviewed with patient and/or family. Voiced understanding. KARLA VALERA Jun 09, 2022 22:04
[2022-06-09 22:12] LABS: BASOPHILS % (AUTO) 0 % (0-10); EOSINOPHILS # (AUTO) 0.1 10^3/uL (0.0-0.3); EOSINOPHILS % (AUTO) 1 % (0-10); HEMATOCRIT 44 % (35-52); HEMOGLOBIN 15.2 g/dL (11.5-16.0); LYMPHOCYTES % (AUTO) 22 % (12-44); MEAN CORPUSCULAR HEMOGLOBIN 30 pg (25-34); MEAN CORPUSCULAR HGB CONC 35 g/dL (32-36); MEAN CORPUSCULAR VOLUME 87 fL (80-99); MEAN PLATELET VOLUME 11.1 fL (9.0-12.2); MONOCYTES # (AUTO) 0.6 10^3/uL (0.0-1.0); MONOCYTES % (AUTO) 7 % (0-12); NEUTROPHILS # (AUTO) 6.3 10^3/uL (1.8-7.8); NEUTROPHILS % (AUTO) 69 % (42-75); PLATELET COUNT 203 10^3/uL (130-400); WHITE BLOOD COUNT 9.1 10^3/uL (4.3-11.0)
[2022-06-09 22:20] LABS: ALBUMIN 4.5 GM/DL (3.2-4.5); CHLORIDE 107 MMOL/L (98-107); POTASSIUM 3.1 MMOL/L (3.6-5.0); SODIUM 140 MMOL/L (135-145)
[2022-06-09 22:22] LABS: CALCIUM 9.6 MG/DL (8.5-10.1)
[2022-06-09 22:23] LABS: GLUCOSE 97 MG/DL (70-105); TOTAL PROTEIN 7.1 GM/DL (6.4-8.2)
[2022-06-09 22:24] VITALS: BP_SYST 123; BP_SYST 127; BP_SYST 139; BP_DIAS 85; BP_DIAS 97; BP_DIAS 98
[2022-06-09 22:24] LABS: CARBON DIOXIDE 21 MMOL/L (21-32)
[2022-06-09 22:25] LABS: BILIRUBIN,TOTAL 0.8 MG/DL (0.1-1.0)
[2022-06-09 22:26] LABS: ALKALINE PHOSPHATASE 48 U/L (40-136); CREATININE SERUM 0.83 MG/DL (0.60-1.30); GFR ESTIMATED 103
[2022-06-09 22:28] LABS: BUN/CREATININE RATIO 6
[2022-06-09 22:29] LABS: ALANINE AMINOTRANSFERASE 16 U/L (0-55)
[2022-06-09] MEDS ORDERED: LACTATED RINGERS 1,000 ML IV ONE (23:15)
[2022-06-10 00:09] VITALS: BP 132/87
== END 2022-06-10 00:07 | disposition home or self-care (01) ==
LOC: EDUNIT# 21:27 → ER 21:29
DX: R55 Syncope and collapse (principal); E86.0 Dehydration; Z86.79 Personal history of other diseases of the circulatory system
CPT/HCPCS: 36415; 80053; 84484; 85025; 86141; 93005

== ENCOUNTER 2022-06-17 22:56 | Emergency (ER) | payer OTHER ==
[~2022-06-17] VITALS: Ht 172.7 cm; Wt 63.5 kg
[2022-06-17 23:23] LABS: BASOPHILS # (AUTO) 0.1 10^3/uL (0.0-0.1); BASOPHILS % (AUTO) 1 % (0-10); EOSINOPHILS # (AUTO) 0.1 10^3/uL (0.0-0.3); EOSINOPHILS % (AUTO) 1 % (0-10); HEMATOCRIT 45 % (35-52); LYMPHOCYTES % (AUTO) 31 % (12-44); MEAN CORPUSCULAR HEMOGLOBIN 31 pg (25-34); MEAN CORPUSCULAR HGB CONC 35 g/dL (32-36); MEAN CORPUSCULAR VOLUME 86 fL (80-99); MEAN PLATELET VOLUME 10.6 fL (9.0-12.2); MONOCYTES # (AUTO) 0.7 10^3/uL (0.0-1.0); MONOCYTES % (AUTO) 8 % (0-12); NEUTROPHILS # (AUTO) 5.6 10^3/uL (1.8-7.8); NEUTROPHILS % (AUTO) 59 % (42-75); PLATELET COUNT 244 10^3/uL (130-400); WHITE BLOOD COUNT 9.5 10^3/uL (4.3-11.0)
[2022-06-17 23:35] LABS: ALBUMIN 4.7 GM/DL (3.2-4.5)
[2022-06-17 23:36] LABS: CHLORIDE 106 MMOL/L (98-107); POTASSIUM 3.1 MMOL/L (3.6-5.0); SODIUM 140 MMOL/L (135-145)
[2022-06-17 23:37] LABS: CALCIUM 9.9 MG/DL (8.5-10.1)
--- NOTE | 2022-06-17 23:37 | ED Cardiac General ---
History of Present Illness General Chief Complaint: Chest Pain Stated Complaint: HIGH BP 162/118,SHAKY,CHEST TIGHTNESS,SOA Source: patient History of Present Illness Date Seen by Provider: Jun 17, 2022 Time Seen by Provider: 23:05 Allergies and Home Medications Allergies Coded Allergies: No Known Drug Allergies (Unverified , 07/18/12) Patient Home Medication List Cyclobenzaprine HCl (Cyclobenzaprine HCl) 10 Mg Tablet, (Reported) Entered as Reported by: OMAR GLEZ on 09/02/212147 Medroxyprogesterone Acetate (Medroxyprogesterone Acetate) 10 Mg Tablet, (Reported) Entered as Reported by: OMAR GLEZ on 09/02/212147 Metoprolol Tartrate (Metoprolol Tartrate) 25 Mg Tablet, Unknown Dose PO BID, (Reported) Entered as Reported by: OMAR GLEZ on 09/02/212147 Nitrofurantoin Monohyd/M-Cryst (Macrobid 100 mg Capsule) 100 Mg Capsule, 1 TAB PO BID Prescribed by: LEAH SAHA on 09/02/212251 Nitrofurantoin Monohyd/M-Cryst (Macrobid 100 mg Capsule) 100 Mg Capsule, 1 TAB PO BID Prescribed by: CELESTE SOMMERS on 03/03/222209 Past Hvzkxso-Srvsdf-Osylbm Hx Immunizations Up To Date PED Vaccines UTD: Yes First/Initial COVID19 Vaccinat: 12/05 Second COVID19 Vaccination Mulugeta: 01/02 Third COVID19 Vaccination Date: 12/05 Seasonal Allergies Seasonal Allergies: No Past Medical History Surgery/Hospitalization HX: POTS Surgeries: Yes Gallbladder Respiratory: No Cardiac: Yes (Postural Tachycardia Syndrome) Neurological: No Headaches /Migraines Reproductive Disorders: No Genitourinary: No Gastrointestinal: Yes Gastroesophageal Reflux Musculoskeletal: No Scoliosis Endocrine: No HEENT: No Cancer: No Psychosocial: No Anxiety, Depression Integumentary: No Blood Disorders: No Physical Exam Vital Signs Vital Signs - First Documented 06/17/22 23:06 Temp 36.4 Pulse 86 Resp 20 B/P (MAP) 123/87 (99) Pulse Ox 97 Capillary Refill : Height, Weight, BMI Height: 5'7.00" Weight: 135lbs. 0.0oz. 61.869335hi; 21.00 BMI Method:Stated Progress/Results/Core Measures Results/Orders Lab Results Laboratory Tests Test 06/17/22 23:15 06/17/22 23:38 Range/Units White Blood Count 9.5 4.3-11.0 10^3/uL Red Blood Count 5.25 H 3.80-5.11 10^6/uL Hemoglobin 16.0 11.5-16.0 g/dL Hematocrit 45 35-52 % Mean Corpuscular Volume 86 80-99 fL Mean Corpuscular Hemoglobin 31 25-34 pg Mean Corpuscular Hemoglobin Concent 35 32-36 g/dL Red Cell Distribution Width 11.9 10.0-14.5 % Platelet Count 244 130-400 10^3/uL Mean Platelet Volume 10.6 9.0-12.2 fL Immature Granulocyte % (Auto) 0 % Neutrophils (%) (Auto) 59 42-75 % Lymphocytes (%) (Auto) 31 12-44 % Monocytes (%) (Auto) 8 0-12 % Eosinophils (%) (Auto) 1 0-10 % Basophils (%) (Auto) 1 0-10 % Neutrophils # (Auto) 5.6 1.8-7.8 10^3/uL Lymphocytes # (Auto) 3.0 1.0-4.0 10^3/uL Monocytes # (Auto) 0.7 0.0-1.0 10^3/uL Eosinophils # (Auto) 0.1 0.0-0.3 10^3/uL Basophils # (Auto) 0.1 0.0-0.1 10^3/uL Immature Granulocyte # (Auto) 0.0 0.0-0.1 10^3/uL Prothrombin Time 13.8 12.2-14.7 SEC INR Comment 1.0 0.8-1.4 Activated Partial Thromboplast Time 32 24-35 SEC D-Dimer < 0.27 0.00-0.49 UG/ML Sodium Level 140 135-145 MMOL/L Potassium Level 3.1 L 3.6-5.0 MMOL/L Chloride Level 106 98-107 MMOL/L Carbon Dioxide Level 18 L 21-32 MMOL/L Anion Gap 16 H 5-14 MMOL/L Blood Urea Nitrogen 8 7-18 MG/DL Creatinine 0.84 0.60-1.30 MG/DL Estimat Glomerular Filtration Rate 101 BUN/Creatinine Ratio 10 Glucose Level 114 H 70-105 MG/DL Calcium Level 9.9 8.5-10.1 MG/DL Corrected Calcium 8.5-10.1 MG/DL Magnesium Level 1.9 1.6-2.4 MG/DL Total Bilirubin 1.0 0.1-1.0 MG/DL Aspartate Amino Transf (AST/SGOT) 27 5-34 U/L Alanine Aminotransferase (ALT/SGPT) 21 0-55 U/L Alkaline Phosphatase 55 40-136 U/L Troponin I < 0.028 <0.028 NG/ML B-Type Natriuretic Peptide < 10.0 <100.0 PG/ML Total Protein 7.4 6.4-8.2 GM/DL Albumin 4.7 H 3.2-4.5 GM/DL TSH [place] Testing 1.21 0.35-4.94 UIU/ML Serum Test, Qualitative NEGATIVE NEGATIVE Urine Color YELLOW Urine Clarity CLEAR Urine pH 6.0 5-9 Urine Specific [place] >=1.030 1.016-1.022 Urine Protein NEGATIVE NEGATIVE Urine Glucose (UA) NEGATIVE NEGATIVE Urine Ketones NEGATIVE NEGATIVE Urine Nitrite NEGATIVE NEGATIVE Urine Bilirubin NEGATIVE NEGATIVE Urine Urobilinogen 1.0 < = 1.0 MG/DL Urine Leukocyte Esterase TRACE H NEGATIVE Urine RBC (Auto) TRACE-I H NEGATIVE Urine RBC NONE /HPF Urine WBC 0-2 /HPF Urine Squamous Epithelial Cells 2-5 /HPF Urine Crystals NONE /LPF Urine Bacteria TRACE /HPF Urine Casts NONE /LPF Urine Mucus NEGATIVE /LPF Urine Culture Indicated NO Urine Opiates Screen NEGATIVE NEGATIVE Urine Oxycodone Screen NEGATIVE NEGATIVE Urine Methadone Screen NEGATIVE NEGATIVE Urine Propoxyphene Screen NEGATIVE NEGATIVE Urine Barbiturates Screen NEGATIVE NEGATIVE Ur Tricyclic Antidepressants Screen NEGATIVE NEGATIVE Urine Phencyclidine Screen NEGATIVE NEGATIVE Urine Amphetamines Screen NEGATIVE NEGATIVE Urine Methamphetamines Screen NEGATIVE NEGATIVE Urine Benzodiazepines Screen NEGATIVE NEGATIVE Urine Cocaine Screen NEGATIVE NEGATIVE Urine Cannabinoids Screen NEGATIVE NEGATIVE My Orders Orders - CELESTE SOMMERS DO Ed Iv/Invasive Line Start (06/17/22 23:12) Ekg Tracing (06/17/22 23:12) Monitor-Rhythm Ecg Trace Only (06/17/22 23:12) Bnp Yobany (06/17/22 23:12) Cbc With Automated Diff (06/17/22 23:12) Comprehensive Metabolic Panel (06/17/22 23:12) Fibrin Degradation Products (06/17/22 23:12) Drug Screen Stat (Urine) (06/17/22 23:12) Magnesium (06/17/22 23:12) Protime With Inr (06/17/22 23:12) Partial Thromboplastin Time (06/17/22 23:12) Thyroid Analyzer (06/17/22 23:12) Ua Culture If Indicated (06/17/22 23:12) Troponin I Yobany (06/17/22 23:12) Hcg,Qualitative Serum (06/17/22 23:33) Chest 1 View, Ap/Pa Only (06/18/22 00:01) Vital Signs/I&O 06/17/22 23:06 Temp 36.4 Pulse 86 Resp 20 B/P (MAP) 123/87 (99) Pulse Ox 97 Departure Impression Primary Impression: Chest pain Additional Impression: Hypokalemia Disposition: HOME, SELF-CARE Condition: Improved Departure-Patient Inst. Decision time for Depature: 01:23 Ref[facility]: [facility] (PCP/Family) Primary Care Physician Patient Instructions: Chest Pain, Hypokalemia (DC) Add. Discharge Instructions: CONTINUE YOUR MEDICATIONS PRESCRIBED FOLLOW UP WITH [facility] ON SUNDAY FOR FURTHER CARE, RETURN TO ER IF SYMPTOMS WORSEN All discharge instructions reviewed with patient and/or family. Voiced understanding. CELESTE SOMMERS DO Jun 17, 2022 23:37
[2022-06-17 23:38] LABS: GLUCOSE 114 MG/DL (70-105); TOTAL PROTEIN 7.4 GM/DL (6.4-8.2)
[2022-06-17 23:39] LABS: CARBON DIOXIDE 18 MMOL/L (21-32)
[2022-06-17 23:41] LABS: ALKALINE PHOSPHATASE 55 U/L (40-136)
[2022-06-17 23:42] LABS: CREATININE SERUM 0.84 MG/DL (0.60-1.30); GFR ESTIMATED 101
[2022-06-17 23:43] LABS: BUN/CREATININE RATIO 10
[2022-06-17 23:44] LABS: BILIRUBIN,URINE NEGATIVE (NEGATIVE); CLARITY,URINE CLEAR; COLOR,URINE YELLOW; GLUCOSE, URINE (UA) NEGATIVE (NEGATIVE); KETONES,URINE NEGATIVE (NEGATIVE); LEUKOCYTE ESTERASE ,URINE TRACE (NEGATIVE); NITRITE,URINE NEGATIVE (NEGATIVE); PROTEIN,URINE NEGATIVE (NEGATIVE)
[2022-06-17 23:44] LABS: MAGNESIUM 1.9 MG/DL (1.6-2.4)
[2022-06-17 23:45] LABS: ALANINE AMINOTRANSFERASE 21 U/L (0-55)
[2022-06-17 23:50] LABS: BACTERIA,URINE TRACE /HPF; WBC,URINE 0-2 /HPF
[2022-06-17 23:55] LABS: FIBRIN DEGRADATION PRODUCTS < 0.27 UG/ML (0.00-0.49); PARTIAL THROMBOPLASTIN TIME 32 SEC (24-35); PROTHROMBIN TIME PATIENT 13.8 SEC (12.2-14.7)
[2022-06-17 23:59] LABS: AMPHETAMINE SCREEN, URINE NEGATIVE (NEGATIVE); BARBITURATE SCREEN URINE NEGATIVE (NEGATIVE); BENZODIAZEPINES SCREEN URINE NEGATIVE (NEGATIVE); CANNABINOID SCREEN, URINE NEGATIVE (NEGATIVE); COCAINE SCREEN URINE NEGATIVE (NEGATIVE); METHADONE STAT NEGATIVE (NEGATIVE); OPIATE SCREEN URINE NEGATIVE (NEGATIVE); OXYCODONE STAT NEGATIVE (NEGATIVE); PROPOXYPHENE STAT NEGATIVE (NEGATIVE); TRICYCLIC ANTIDEPRESSANTS SCRE NEGATIVE (NEGATIVE)
[2022-06-18 00:05] LABS: TSH (THYROID ANALYZER) 1.21 UIU/ML (0.35-4.94)
[2022-06-18 01:30] VITALS: BP 116/84
[2022-06-18] MEDS ORDERED: KCL 10 MEQ TAB (MICRO K) PO ONE (01:30)
--- NOTE | 2022-06-18 07:08 | Diagnostic Imaging Report ---
EXAMINATION: Chest 1 view HISTORY: Chest pain COMPARISON: 06/21/2019 FINDINGS: Heart size and pulmonary vasculature are normal. The lungs are clear without consolidation, pleural effusion, or pneumothorax. The osseous structures are intact. IMPRESSION: 1. No acute radiographic abnormality in the chest. Dictated by: Dictated on workstation # [id number]
== END 2022-06-18 01:36 | disposition home or self-care (01) ==
LOC: EDUNIT# 22:56 → ER 22:58
DX: R07.89 Other chest pain (principal); E87.6 Hypokalemia
CPT/HCPCS: 36415; 71045; 80053; 80306; 81000; 83735; 83880; 84443; 84484; 84703; 85025; 85379; 85610; 85730; 93005; 93041

== ENCOUNTER 2022-07-07 19:27 | Emergency (ER) | payer OTHER ==
--- NOTE | 2022-07-07 19:50 | ED Psychosocial ---
General Chief Complaint: Psych/Social Disorder Stated Complaint: PANIC ATTACK Source: patient Exam Limitations: no limitations History of Present Illness Date Seen by Provider: Jul 07, 2022 Time Seen by Provider: 19:36 Initial Comments Patient to the ER by private conveyance from home with chief complaint of an anxiety attack while laying in bed reading a book. She says she has a history of anxiety attacks and takes Effexor. She stopped taking her Effexor in the past week because she thought she might be . She had some positive and some negative. She says the line was very faint. She went to [facility] and they told her that it was negative. Her first positive test was on Sunday, she saw them on and then today she had an anxiety attack. She does not have anything to break anxiety attacks at home. Allergies and Home Medications Allergies Coded Allergies: No Known Drug Allergies (Unverified , 07/18/12) Patient Home Medication List Home Medication List Reviewed: Yes Cyclobenzaprine HCl (Cyclobenzaprine HCl) 10 Mg Tablet, (Reported) Entered as Reported by: OMAR GLEZ on 09/02/212147 Medroxyprogesterone Acetate (Medroxyprogesterone Acetate) 10 Mg Tablet, (R eported) Entered as Reported by: OMAR GLEZ on 09/02/212147 Metoprolol Tartrate (Metoprolol Tartrate) 25 Mg Tablet, Unknown Dose PO BID, (Reported) Entered as Reported by: OMAR GLEZ on 09/02/212147 Nitrofurantoin Monohyd/M-Cryst (Macrobid 100 mg Capsule) 100 Mg Capsule, 1 TAB PO BID Prescribed by: LEAH SAHA on 09/02/212251 Nitrofurantoin Monohyd/M-Cryst (Macrobid 100 mg Capsule) 100 Mg Capsule, 1 TAB PO BID Prescribed by: CELESTE SOMMERS on 03/03/222209 Review of Systems Constitutional: No chills, No diaphoresis EENTM: No ear discharge, No ear pain Respiratory: No cough, No short of breath Cardiovascular: No chest pain, No edema Gastrointestinal: No abdominal pain, No nausea, No vomiting Genitourinary: No discharge, No dysuria Psychiatric/Neurological: See HPI, Anxiety All Other Systems Reviewed Negative Unless Noted: Yes Past Dtkltfn-Mbomny-Hpguiy Hx Patient Social History Tobacco Use?: No Substance use?: No Alcohol Use?: No Immunizations Up To Date PED Vaccines UTD: Yes First/Initial COVID19 Vaccinat: 12/05 Second COVID19 Vaccination Mulugeta: 01/02 Third COVID19 Vaccination Date: 12/05 Seasonal Allergies Seasonal Allergies: No Past Medical History Surgery/Hospitalization HX: POTS Surgeries: Yes Gallbladder Respiratory: No Cardiac: Yes (Postural Tachycardia Syndrome) Palpitations Neurological: Yes Headaches /Migraines Reproductive Disorders: No Genitourinary: No Gastrointestinal: Yes (S/P CHOLECYSTECTOMY) Gastroesophageal Reflux, Gall Bladder Disease Musculoskeletal: Yes Scoliosis, Chronic Back Pain Endocrine: No HEENT: No Cancer: No Psychosocial: Yes Anxiety, Depression Integumentary: No Blood Disorders: No Physical Exam Vital Signs - First Documented 07/07/22 19:39 Temp 37.3 Pulse 118 Resp 18 B/P (MAP) 123/100 (108) Pulse Ox 94 O2 Delivery Room Air Capillary Refill : Height, Weight, BMI Height: 5'7.00" Weight: 135lbs. 0.0oz. 61.598576ix; 21.00 BMI Method:Stated General Appearance: WD/WN, mild distress HEENT: PERRL/EOMI, pharynx normal Neck: full range of motion, normal inspection Respiratory: lungs clear, normal breath sounds, no respiratory distress, no accessory muscle use Cardiovascular: normal peripheral pulses, regular rate, rhythm Gastrointestinal: non tender, soft Neurologic/Psychiatric: alert, normal mood/affect, oriented x 3 Appearance/Memory: appropriate appearance, appropriate insight Thoughts/Hallucinations: normal thought pattern, no apparent hallucination Skin: normal color, warm/dry Progress/Results/Core Measures Results/Orders My Orders Orders - KARLA VALERA Hydroxyzine Cap/Tab (Vistaril) (07/07/22 20:00) Medications Given in ED Current Medications Medications Dose Ordered Sig/Floyd Route Start Time Stop Time Status Last Admin Dose Admin Hydroxyzine Pamoate 25 mg ONCE ONCE PO 07/07/22 20:00 07/07/22 20:01 DC 07/07/22 19:57 25 MG Vital Signs/I&O 07/07/22 19:39 Temp 37.3 Pulse 118 Resp 18 B/P (MAP) 123/100 (108) Pulse Ox 94 O2 Delivery Room Air Progress Progress Note #1: Time: 19:48 Progress Note Bedside test is negative. We will give her a tablet of Vistaril and let that work a minute. We will discuss appropriate use of Effexor with . We will discussed that stopping cold turkey may not be the best option and rather she could continue it or wean off it slowly until she gets in with a apprenticeship representative to discuss risks, benefits and alternatives to continuing SSRI/SNRI therapy. At this time however we would recommend restarting the medic ine. Progress Note #2: Time: 20:11 Progress Note Patient starting to feel little better after the hydroxyzine. Plan to send her home with a prescription for some few more to go home with. Patient is okay wi th this plan. Departure Impression Primary Impression: Panic attack Disposition: HOME, SELF-CARE Condition: Stable Departure-Patient Inst. Decision time for Depature: 20:11 Referrals: [facility] [place] Primary Care Physician Patient Instructions: Panic Attack ED Add. Discharge Instructions: At the first signs of a panic attack you can remove yourself to a quiet low stimuli environment, workforce control breathing exercises and take a tablet of Vistaril/hydroxyzine. 25 mg every 6 hours as needed. May cause some mild drowsiness. Do not mix with alcohol. Resume taking your Effexor at your prescribed dose. In the future if you become and you should continue taking your medication until you consult with your apprenticeship representative. All discharge instructions reviewed with patient and/or family. Voiced understanding. Scripts Hydroxyzine Pamoate (Vistaril) 25 Mg Capsule 25 MG PO Q6H PRN for ANXIETY, #20 CAP 0 Refills Prov: KARLA VALERA 07/07/22 KARLA VALERA Jul 07, 2022 19:50
[2022-07-07] MEDS ORDERED: hydrOXYzine (VISTARIL/ATARAX) 25 MG capsule/tablet PO ONE (20:00)
[2022-07-07] MEDS ORDERED: HYDR25CA PO (20:13)
[2022-07-07 20:24] VITALS: BP 123/100
== END 2022-07-07 20:24 | disposition home or self-care (01) ==
LOC: EDUNIT# 19:27 → ER 19:30
DX: F41.0 Panic disorder [episodic paroxysmal anxiety] (principal); Z32.02 Encounter for pregnancy test, result negative; Z79.899 Other long term (current) drug therapy
CPT/HCPCS: 84703; 99283

== ENCOUNTER 2023-01-12 14:04 | Emergency (ER) | payer OTHER ==
[~2023-01-12] VITALS: Ht 172 cm; Wt 58.9 kg
[~2023-01-12 14:04] MED LIST changes: +HYDR25CA PO
[2023-01-12] MEDS ORDERED: NS IV 1000 ML 1,000 ML IV STA (14:24)
--- NOTE | 2023-01-12 14:32 | ED Cardiac General ---
History of Present Illness General Chief Complaint: Cardiac/General Problems Stated Complaint: LOW BLOOD PRESSURE Nursing Triage Note: PT AMBULATORY TO ER. PT REPORTS STARTED FEELING BAD LAST NIGHT, WORSE TODAY. PT STATES FEELS SHAKY AND DISORIENTED. REPORTS BP LAST NIGHT WAS 106/57 AND TODAY WAS 90/53. PT REPORTS HAS AN UNDIAGNOSED HEART PROBLEM, REPORTS SIMILAR TO POTS BUT TESTED NEG FOR POTS. Source: patient Exam Limitations: no limitations History of Present Illness Date Seen by Provider: Jan 12, 2023 Time Seen by Provider: 14:28 Initial Comments Patient is a 22-year-old female who presents to the ED for low blood pressure. She states she had a blood pressure this morning 90/53. Last night blood pressure 105/67. Patient states last night she checked her blood pressures since she was having chest tightness, shakiness, feeling disoriented and spacey. No symptoms continue today. She states she follows up with Dr. Greenwood nursing education specialist and was prescribed a salt pill last week. She is currently on chlorthalidone and natolol. She sees a specialist at [facility] Dr. Hagan cardiology for concern for Ehler Danlos syndrome versus POTS. She is scheduled to follow-up with a basket weaver in [place]. She also states she has exercise-induced asthma. Denies of any wheezing, cough, vomiting. Started having diarrhea this morning. She states she feels dehydrated. Patient on arrival is normotensive. She denies of any specific chest pain but feels more tight. Denies fever, chills, body aches, visual changes, headache, vision changes, syncope, vomiting, nausea, dysuria or concern for , heavy vaginal bleeding. Allergies and Home Medications Allergies Coded Allergies: No Known Drug Allergies (Unverified , 07/18/12) Patient Home Medication List Home Medication List Reviewed: Yes Cyclobenzaprine HCl (Cyclobenzaprine HCl) 10 Mg Tablet, (Reported) Entered as Reported by: OMAR GLEZ on 09/02/212147 Hydroxyzine Pamoate (Vistaril) 25 Mg Capsule, 25 MG PO Q6H PRN for ANXIETY Prescribed by: KARLA VALERA on 07/07/222012 Medroxyprogesterone Acetate (Medroxyprogesterone Acetate) 10 Mg Tablet, (Reported) Entered as Reported by: OMAR GLEZ on 11/19/21 2148 Metoprolol Tartrate (Metoprolol Tartrate) 25 Mg Tablet, Unknown Dose PO BID, (Reported) Entered as Reported by: OMAR GLEZ on 09/02/212147 Nitrofurantoin Monohyd/M-Cryst (Macrobid 100 mg Capsule) 100 Mg Capsule, 1 TAB PO BID Prescribed by: LEAH SAHA on 09/02/212251 Nitrofurantoin Monohyd/M-Cryst (Macrobid 100 mg Capsule) 100 Mg Capsule, 1 TAB PO BID Prescribed by: CELESTE SOMMERS on 03/03/222209 Review of Systems Review of Systems Constitutional: No chills, No diaphoresis, No fever, No malaise, No weakness EENTM: No Blurred Vision, No Double Vision, No Eye Pain, No Mouth Pain, No Mouth Swelling Respiratory: Denies Cough, Denies Orthopnea, Denies Shortness of Air, Denies SOA at Rest Gastrointestinal: Denies Abdominal Pain; Diarrhea; Denies Nausea, Denies Vomiting Genitourinary: Denies Burning, Denies Discharge, Denies Drainage, Denies Frequ ency, Denies Pain Musculoskeletal: No back pain, No joint pain Skin: No change in color, No change in hair/nails All Other Systems Reviewed Negative Unless Noted: Yes Past Mfraglz-Bitgvf-Eekszz Hx Patient Social History Tobacco Use?: No Use of E-Cig and/or Vaping dev: No Substance use?: No Alcohol Use?: No Pt feels they are or have been: No Immunizations Up To Date PED Vaccines UTD: Yes First/Initial COVID19 Vaccinat: RECEIVED UNK WHEN Second COVID19 Vaccination Mulugeta: RECEIVED UNK WHEN Third COVID19 Vaccination Date: 12/05 COVID19 Vaccine Conference Translator: UNK Seasonal Allergies Seasonal Allergies: No Past Medical History Surgery/Hospitalization HX: POTS Surgeries: Yes Gallbladder Respiratory: No Cardiac: Yes (Postural Tachycardia Syndrome) Palpitations Neurological: Yes Headaches /Migraines Last Menstrual Period: Nov 29, 2022 Reproductive Disorders: No Genitourinary: No Gastrointestinal: Yes (S/P CHOLECYSTECTOMY) Gastroesophageal Reflux, Gall Bladder Disease Musculoskeletal: Yes Scoliosis, Chronic Back Pain Endocrine: No HEENT: No Cancer: No Psychosocial: Yes Anxiety, Depression Integumentary: No Blood Disorders: No Physical Exam Vital Signs Vital Signs - First Documented 01/12/23 14:09 Temp 37.2 Pulse 112 Resp 18 B/P (MAP) 126/98 (107) Pulse Ox 95 O2 Delivery Room Air Capillary Refill : Height, Weight, BMI Height: 5'7.00" Weight: 135lbs. 0.0oz. 61.358950fh; 19.00 BMI Method:Stated General Appearance: No Apparent Distress, WD/WN HEENT: PERRL/EOMI, TMs Normal, Normal ENT Inspection, Pharynx Normal Neck: Full Range of Motion, Normal Inspection, Non Tender, Supple Respiratory: Chest Non Tender, Lungs Clear, Normal Breath Sounds, No Accessory Muscle Use, No Respiratory Distress Cardiovascular: Regular Rate, Rhythm, No Edema, No Gallop, No JVD, No Murmur Gastrointestinal: Normal Bowel Sounds, No Organomegaly, No Pulsatile Mass, Non Tender Extremity: Normal Capillary Refill, Normal Inspection, Normal Range of Motion Neurologic/Psychiatric: Alert, Oriented x3, No Motor/Sensory Deficits, Normal Mood/Affect Skin: Normal Color, Warm/Dry Progress/Results/Core Measures Results/Orders Lab Results Laboratory Tests Test 01/12/23 14:33 Range/Units White Blood Count 7.4 4.3-11.0 10^3/uL Red Blood Count 5.03 3.80-5.11 10^6/uL Hemoglobin 15.2 11.5-16.0 g/dL Hematocrit 44 35-52 % Mean Corpuscular Volume 88 80-99 fL Mean Corpuscular Hemoglobin 30 25-34 pg Mean Corpuscular Hemoglobin Concent 35 32-36 g/dL Red Cell Distribution Width 11.6 10.0-14.5 % Platelet Count 225 130-400 10^3/uL Mean Platelet Volume 10.0 9.0-12.2 fL Immature Granulocyte % (Auto) 0 % Neutrophils (%) (Auto) 58 42-75 % Lymphocytes (%) (Auto) 32 12-44 % Monocytes (%) (Auto) 7 0-12 % Eosinophils (%) (Auto) 3 0-10 % Basophils (%) (Auto) 1 0-10 % Neutrophils # (Auto) 4.3 1.8-7.8 10^3/uL Lymphocytes # (Auto) 2.4 1.0-4.0 10^3/uL Monocytes # (Auto) 0.5 0.0-1.0 10^3/uL Eosinophils # (Auto) 0.2 0.0-0.3 10^3/uL Basophils # (Auto) 0.1 0.0-0.1 10^3/uL Immature Granulocyte # (Auto) 0.0 0.0-0.1 10^3/uL Sodium Level 141 135-145 MMOL/L Potassium Level 4.0 3.6-5.0 MMOL/L Chloride Level 109 H 98-107 MMOL/L Carbon Dioxide Level 25 21-32 MMOL/L Anion Gap 7 5-14 MMOL/L Blood Urea Nitrogen 7 7-18 MG/DL Creatinine 0.84 0.60-1.30 MG/DL Estimat Glomerular Filtration Rate 101 BUN/Creatinine Ratio 8 Glucose Level 99 70-105 MG/DL Calcium Level 9.5 8.5-10.1 MG/DL Corrected Calcium 9.1 8.5-10.1 MG/DL Total Bilirubin 0.4 0.1-1.0 MG/DL Aspartate Amino Transf (AST/SGOT) 22 5-34 U/L Alanine Aminotransferase (ALT/SGPT) 19 0-55 U/L Alkaline Phosphatase 70 40-136 U/L Troponin I < 0.028 <0.028 NG/ML Total Protein 7.2 6.4-8.2 GM/DL Albumin 4.5 3.2-4.5 GM/DL My Orders Orders - ARIA ESQUIVEL PA Cbc With Automated Diff (01/12/23 14:24) Comprehensive Metabolic Panel (01/12/23 14:24) Troponin I Yobany (01/12/23 14:24) Ekg Tracing (01/12/23 14:24) Ns Iv 1000 Ml (Sodium Chloride 0.9%) (01/12/23 14:24) Chest 1 View, Ap/Pa Only (01/12/23 14:24) Vital Signs/I&O 01/12/23 14:09 Temp 37.2 Pulse 112 Resp 18 B/P (MAP) 126/98 (107) Pulse Ox 95 O2 Delivery Room Air Blood Pressure Mean: 107 Comment Sinus rhythm with sinus arrhythmia, 89 bpm, QRS duration 72 MS, QTc 362 MS. Departure Communication (PCP) Reviewed previous ER visits, H&P, lab testing. Patient currently follows up with nursing education specialist specialist at [facility]. She does follow-up with Dr. Greenwood as well. According to patient there is concerned that she may have POTS versus Yanet-Danlos syndrome. She is currently on chlorthalidone and nadolol according to patient.. Patient was concerned she became hypotensive at home and started becoming symptomatic with disoriented chest pressure. Patient on arrival blood pressure was 124/83. She states she has had similar symptoms in the past required IV fluids secondary to dehydration. She has no vomiting but did have some episodes of diarrhea today. No urinary symptoms. She does report some chest tightness feels like squeezing. History of exercise-induced asthma. On exam she has clear lung sounds bilateral. Vital signs stable. She is not tachycardic or hypoxic. Due to her current complaint EKG, CBC, CMP, chest x-ray will and a liter of fluid was started. CBC and CMP was otherwise unremarkable. Troponin negative. EKG showed normal sinus rhythm without evidence of WPW, Brugada, A-fib, a flutter, ST elevation or pression. Chest x-ray did not show any evidence of pneumothorax or mediastinal widening, or pneumonia. X-ray did note potential left pleural thickening versus minimal fluid at the left costophrenic angle. She does not appear fluid overload suggesting CHF. No recent infection suggesting infectious cause. Recommend outpatient follow-up and recheck in the next week. Low blood pressure could be related to the m edication. Possibly dehydration. Recommend contacting her specialist to discuss changes if warranted of he BP med. If any worsening symptoms to return back to ED. Chest pressure and tightness has improved. Currently asymptomatic. Patient heart rate at discharge was 88 bpm. Impression Primary Impression: Chest pain, atypical Disposition: 01 HOME, SELF-CARE Condition: Stable Departure-Patient Inst. Decision time for Depature: 15:35 Referrals: [facility] APRN (PCP/Family) Primary Care Physician Patient Instructions: Chest Pain, Adult ED Add. Discharge Instructions: Recommend following up with your specialist at to discuss your blood pressure medication. Recommend continue your salt supplements. If any worsening symptoms return back to ED for further evaluation All discharge instructions reviewed with patient and/or family. Voiced understanding. ARIA ESQUIVEL Jan 12, 2023 14:32
[2023-01-12 14:39] LABS: BASOPHILS # (AUTO) 0.1 10^3/uL (0.0-0.1); BASOPHILS % (AUTO) 1 % (0-10); EOSINOPHILS # (AUTO) 0.2 10^3/uL (0.0-0.3); EOSINOPHILS % (AUTO) 3 % (0-10); HEMATOCRIT 44 % (35-52); HEMOGLOBIN 15.2 g/dL (11.5-16.0); LYMPHOCYTES # (AUTO) 2.4 10^3/uL (1.0-4.0); LYMPHOCYTES % (AUTO) 32 % (12-44); MEAN CORPUSCULAR HEMOGLOBIN 30 pg (25-34); MEAN CORPUSCULAR HGB CONC 35 g/dL (32-36); MEAN CORPUSCULAR VOLUME 88 fL (80-99); MONOCYTES # (AUTO) 0.5 10^3/uL (0.0-1.0); MONOCYTES % (AUTO) 7 % (0-12); NEUTROPHILS # (AUTO) 4.3 10^3/uL (1.8-7.8); NEUTROPHILS % (AUTO) 58 % (42-75); PLATELET COUNT 225 10^3/uL (130-400); WHITE BLOOD COUNT 7.4 10^3/uL (4.3-11.0)
[2023-01-12 14:47] LABS: ALBUMIN 4.5 GM/DL (3.2-4.5)
[2023-01-12 14:48] LABS: CHLORIDE 109 MMOL/L (98-107); SODIUM 141 MMOL/L (135-145)
--- NOTE | 2023-01-12 14:48 | Diagnostic Imaging Report ---
INDICATION: Chest pain. EXAMINATION: Chest from 01/12/2023. COMPARISON: 06/18/2022. FINDINGS: Increased density in the right medial lower lung is stable from multiple prior examinations and likely normal for patient. There is no definite infiltrate. No significant effusions with minimal pleural thickening or possible pleural fluid at the left costophrenic angle. There is no pneumothorax. IMPRESSION: 1. Pleural thickening versus minimal fluid at the left costophrenic angle. Remaining chest is stable from previous. Dictated by: Dictated on workstation # [id number]
[2023-01-12 14:49] LABS: CALCIUM 9.5 MG/DL (8.5-10.1)
[2023-01-12 14:50] LABS: GLUCOSE 99 MG/DL (70-105); TOTAL PROTEIN 7.2 GM/DL (6.4-8.2)
[2023-01-12 14:51] LABS: CARBON DIOXIDE 25 MMOL/L (21-32)
[2023-01-12 14:52] LABS: BILIRUBIN,TOTAL 0.4 MG/DL (0.1-1.0)
[2023-01-12 14:53] LABS: ALKALINE PHOSPHATASE 70 U/L (40-136)
[2023-01-12 14:54] LABS: CREATININE SERUM 0.84 MG/DL (0.60-1.30); GFR ESTIMATED 101
[2023-01-12 14:55] LABS: BUN/CREATININE RATIO 8
[2023-01-12 14:56] LABS: ALANINE AMINOTRANSFERASE 19 U/L (0-55)
[2023-01-12 15:38] VITALS: BP 124/67
== END 2023-01-12 15:38 | disposition home or self-care (01) ==
LOC: EDUNIT# 14:04 → ER 14:06
DX: R07.89 Other chest pain (principal); Z79.899 Other long term (current) drug therapy
CPT/HCPCS: 36415; 71045; 80053; 84484; 85025; 93005

== ENCOUNTER 2023-07-05 12:17 | Emergency (ER) | payer OTHER | END 2023-07-05 12:49 | disposition left against medical advice (07) | LOC: EDUNIT# 12:17 → ER 12:19 | DX: R55 Syncope and collapse (principal); R42 Dizziness and giddiness ==

== ENCOUNTER → 2023-09-19 | Outpatient (CLI) | payer OTHER ==
[~2023-09-19] VITALS: Ht 172.7 cm; Wt 66.5 kg
[~2023-09-19] MED LIST changes: +BREX2TAB PO; +FLUO10CA29 PO; +IVAB5TAB PO; +NADO20TA3 PO
== END | disposition home or self-care (01) ==
LOC: PREOP 10:04
PROVIDERS: ATTEND Surgery
DX: Z01.818 Encounter for other preprocedural examination (principal)